=== PATIENT | female | born 1990 | race Caucasian/White ===

== ENCOUNTER 2018-04-06 16:03 | Emergency (ER) | payer OTHER ==
[~2018-04-06] VITALS: Ht 160 cm; Wt 56.1 kg
[~2018-04-06 16:03] MED LIST: ACYCLOVIR800 MG PO; ATARAX,VISTARIL25 MG PO; ATHENOL325 MG PO; CIPRO500 MG PO; CITRATE OF MAG296 ML PO; COLACE100 MG PO; FIORICET WI1 CAPSULE PO; FIORINAL WITH1 EACH PO; FLAGYL500 MG PO; FLEXERIL10 MG PO; FLINTSTONES1 EACH PO; Fioricet,Esgic,Repan PO; KEFLEX500 MG PO; MACROBID100 MG PO; MEDROL DOSEPAK4 MG PO; MOTRIN600 MG PO; Macrobid PO; Motrin PO; NAPROSYN500 MG PO; NO HOME MEDS; Natalcare Rx,Pramile PO; PEPCID40 MG PO; PROMETHAZINE HC25 M1 PO; Percocet 5/325,Endoc PO; REGLAN5 MG PO; SKELAXIN800 MG PO; TRAMADOL HCL50 MG PO; VICODIN 5-3001 EACH PO; ZITHROMAX Z-PA250 MG PO; ZOFRAN4 MG PO
[2018-04-06 16:53] LABS: HEMATOCRIT 38.7 % (36.0-46.0); HEMOGLOBIN 13.4 G/DL (11.9-15.5); MCH 30.5 PG (29.0-34.0); MCHC 34.6 G/DL (30.0-36.0); PLATELET COUNT 167 K/uL (156-360); RBC DIS.WIDTH-CV 12.1 % (11.8-14.6); RBC DIS.WIDTH-SD 39.2 % (39-53); WHITE BLOOD COUNT 5.7 K/uL (4.1-10.2)
[2018-04-06 17:03] LABS: APPEARANCE SL.HAZY ((CLEAR)); BILIRUBIN NEGATIVE; BLOOD MODERATE; COLOR YELLOW ((YELLOW)); GLUCOSE (STRIP) NEGATIVE; KETONES NEGATIVE; LEUKOCYTES LARGE; NITRITE NEGATIVE; PROTEIN (STRIP) 30; SPECIFIC GRAVITY 1.013 (1.000-1.030); UROBILINOGEN 0.2 MG/DL (0.2-1.0)
[2018-04-06 17:06] LABS: ALBUMIN 4.4 g/dL (3.2-4.8); CHLORIDE 103 mEq/L (99-109); SODIUM 140 mEq/L (136-147)
[2018-04-06 17:09] LABS: GLUCOSE 86 mg/dL (70-99)
[2018-04-06 17:10] LABS: TOTAL BILIRUBIN 0.7 mg/dL (0.0-1.0)
[2018-04-06 17:12] LABS: ALKALINE PHOSPHATASE 54 IU/L (3-129); CREATININE 0.8 mg/dL (0.6-1.3); GFR ESTIMATE (CALCULATED) > 59 mL/min/
[2018-04-06 17:13] LABS: UREA NITROGEN (BUN) 15 mg/dL (9-23)
[2018-04-06 17:14] LABS: AST (GOT) 18 IU/L (2-34)
[2018-04-06 17:15] LABS: ALT (GPT) 12 IU/L (3-49)
[2018-04-06 17:21] LABS: QUANTITATIVE HCG < 4.0 MIU/ML
[2018-04-06 17:22] LABS: LIPASE 17 U/L (1.0-51.0)
[2018-04-06 17:27] LABS: EPITHELIAL CELLS 1+ /HPF; WHITE BLOOD CELLS TNTC /HPF (0-5)
[2018-04-06 17:28] LABS: BACTERIA 2+ /HPF; MUCUS NONE SEEN /LPF; UCUL ADDED? YES
[2018-04-06 20:17] LABS: DIRECT BILIRUBIN 0.3 mg/dL (0.0-0.3)
[2018-04-06] MEDS ORDERED: KEFLEX500 MG PO (21:34)
[2018-04-06] MEDS ORDERED: PYRIDIUM100 MG PO (21:34)
[2018-04-06 21:55] VITALS: BP 111/71
== END 2018-04-06 21:55 | disposition home or self-care (01) ==
LOC: EME 16:03
DX: N39.0 Urinary tract infection, site not specified (principal); Z87.440 Personal history of urinary (tract) infections; F17.200 Nicotine dependence, unspecified, uncomplicated
CPT/HCPCS: 74177; 80053; 80076; 81003; 82248; 83690; 84702; 85027; 87077; 87086; J0696; J1885; J7030